=== PATIENT | male | born 1980 | race Caucasian/White ===

== ENCOUNTER 2025-04-28 10:24 | Outpatient (AMB) | payer OTHER, SELFPAY ==
--- OUTSIDE RECORDS SUMMARY | 2025-04-28 11:41 | XMS_ITS | Encounter Summary ---
Author Organization [facility] Address [address] [place] [address] Phone Care Team Providers Care Surgical Physician Assistant Name Role Phone Ciaran Johnston MD Unavailable [phone] Rain King MD Unavailable [phone] Karolina Carlton MD Unavailable [phone] Silver Charles SDE Unavailable Casey Amezquita CABLE LACER Unavailable [phone] Carmen Kumar SDE Unavailable [phone] Jeffrey Celestin MD Unavailable Mikal Lea MD Unavailable [phone] Isabela Izquierdo DO Primary Care Provider Deborah Aquino MD Primary Care Provider Cam Butler MD Primary Care Provider Encounter Details Date Type Department Care Team (Late st Contact Info) Description 04/15/2019 Ancillary Orders [facility] & [facility] Medicine [address] [place] [phone] Kaitlynn Haro MD [address] [place] [address] Orthopedics & Sports Medicine, [facility] [place], [place] [id number] Social History Tobacco Use Types Packs/Day Years Used Date Smoking Tobacco: Never Smokeless Tobacco: Never Alcohol Use Standard Drinks/Week Comments Yes 0 (1 standard drink = 0.6 oz pur e alcohol) Sex and Gender Information Value Date Recorded Sex Assigned at Not on file Legal Sex Male 8:33 PM EDT Gender Identity Not on file Sexual Orientation Not on file documented as of this encounter Plan of Treatment Upcoming Encounters Date Type Department Care Team (Late st Contact Info) Description 08/05/2025 4:15 PM EST Office Visit [facility] Family Medicine [address] [place] [id number] Cam Butler MD [address] [place] [address], [address] [place] [address] [email or web address] documented as of this encounter Visit Diagnoses Not on filedocumented in this encounter Additional Health Concerns Infection Onset Date Last Indicated Resolved Time COVID-19 05/20/2021 05/20/2021 06/10/2021 1:22 AM EDT documented as of this encounter Care Teams Surgical Physician Assistant Relationship Specialty Start Date End Date Isabela Izquierdo DO [address] [place] [id number] [email or web address] PCP - General 09/13/18 01/13/21 Deborah Aquino MD [address] [place] [address] PCP - General Family Medicine 01/14/21 01/17/21 Cam Butler MD [address] [place] [address], [address] [place] [address] PCP - General Internal Medicine 01/18/21 Ciaran Johnston MD [address] [place] [address], [address] [place] [address] Historical LMR Provider 06/30/17 09/17/21 Rain King MD [address] [facility], [address] [place] [address] Historical LMR Provider 06/30/17 2 Karolina Carlton MD [address] [place] [id number] [email or web address] Historical LMR Provider 06/30/17 09/17/21 Silver Charles, GERARD [address] [place] [address] [facility] [address] [email or web address] Historical LMR Provider 06/30/17 09/17/21 Casey Amezquita, BRADLEY [address] [place] [address], [address] [place] [address] [email or web address] Historical LMR Provider 06/30/17 09/17/21 Carmen Kumar, GERARD [address] [place] [address] [place] [address] Historical LMR Provider 06/30/17 Jeffrey Celestin MD [address] [place] [address], [address] [place] [address] [email or web address] Historical LMR Provider 06/30/17 Mikal Lea MD [address] [facility] [address] 1 [place] [address] (work) [email or web address] Historical LMR Provider 06/30/17 documented as of this encounter Additional Source Comments The information contained in this document represents components of the legal health record. It is not the complete legal health record.[facility]
== END 2025-04-28 10:42 | disposition home or self-care (01) ==
LOC: HO.HMGAL 10:24
PROVIDERS: Visit Provider Registered Nurse Emergency
DX: J30.89 Other allergic rhinitis (principal)
CPT/HCPCS: 95117; 95165

== ENCOUNTER 2025-05-06 10:35 | Outpatient (AMB) | payer OTHER, SELFPAY ==
--- OUTSIDE RECORDS SUMMARY | 2025-05-06 11:27 | XMS_ITS | Clinical Summary ---
Author Organization [facility] Address [address] [place] [address] Phone Care Team Providers Care Bottom Hoop Driver Name Role Phone Jeffrey Celestin MD Unavailable [phone] Mikal Lea MD Unavailable Cam Butler MD Primary Care Provider [phone] Allergies Active Allergy Reactions Criticality Noted Date Comments House Dust Mite Cough,Itching,Shortn ess Of Breath,Sneezing High 05/21/2000 Lisinopril Cough 11/11/2023 Pollen Extracts 02/02/2022 Medications TURMERIC ROOT EXTRACT ORAL Take by mouth. Ac tive ZINC ACETATE ORAL Take by mouth. Active multivitamins capsule Take 1 capsule by mouth daily. Active loratadine 10 mg Cap Take by mouth daily as needed. Active cetirizine (ZYRTEC) 10 MG tablet Take 10 mg by mouth daily as needed for allergies. Active fexofenadine (DONNA) 60 MG tablet Take 60 mg by mouth daily. Active albuterol (PROAIR HFA) 90 mcg/actuation inhalerIndication s:Exercise-induce d bronchospasm Inhale 2 puffs into the lungs every 4 (four) hours as needed for wheezing. 1 Inhaler 3 0 Active blood pressure test kit-medium KitIndications:Es sential hypertension Check BP every 2-3 times a week 1 kit 3 Active ketoconazole 2 % creamIndications: Seborrheic dermatitis Apply topically daily. 30 g 2 4 Active valsartan-hydroCH LOROthiazide (DIOVAN-HCT) 160-12.5 mg per tabletIndications :Essential hypertension Take 1 tablet by mouth daily. 90 tablet 3 5 Active methylphenidate (CONCERTA) 54 MG ER tabletIndications :Adult attention deficit disorder Take 1 tablet (54 mg total) by mouth every morning. 30 tablet 5 Active Active Problems Problem Noted Date Diagnosed Date Strain of tendon of right shoulder 11/19/2024 Assessment & Plan (11/19/2024 10:25 AM EDT): Patient has persistent symptoms after snowboarding accident, but they are gradually improving. I showed him some exercises he can do at home. If these do not satisfactorily resolve his symptoms, he will let me know and I can refer to physical therapy. Allergic contact dermatitis due to plants, excep t food 01/09/2024 Assessment & Plan (01/09/2024 9:42 AM EDT): Likely has poison luis, triamcinolone cream is helpful. He can continue using this. Rash should gradually improve and resolve over the course the next week or 2. Seborrheic dermatitis 10/10/2023 Assessment & Plan (10/10/2023 9:19 AM EST): Rash on face is likely seborrheic although could be rosacea. Try ketoconazole cream. If not helpful he can try alternating it every other day with hydrocortisone cream. If neither is helpful, could be rosacea and could try metronidazole cream. Seborrheic dermatitis of scalp 07/06/2023 Assessment & Plan (07/06/2023 1:42 PM EDT): Failed head and shoulders, try selenium based or tar-based shampoo 2 or 3 times per week. 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 Asked him to check his blood pressure resting at home and send me about 10 blood pressure readings in a month. Goal is to maintain an average blood pressure less than 130/80. Encouraged also to work on losing some weight and continue low-sodium diet. Continue current medication. Assessment & Plan (07/30/2024 2:23 PM EST): Blood pressure seems like this is running too high, but he like to get more data. I asked him to check his blood pressure at home 2 or 3 times per week and send about 10 blood pressure readings before the end of the year. Blood pressure goal is less than 130/80. If he is not in the range, I will add hydrochlorothiazide to valsartan. Assessment & Plan (01/09/2024 9:42 AM EDT): Blood pressure is better but still above target, increase dose of valsartan. Continue working on diet and exercise. Continue monitoring blood pressure, goal is to maintain an average blood pressure less than 130/80. Assessment & Plan (10/10/2023 9:18 AM EST): Blood pressure is running too high and developed dry cough with lisinopril. Will check labs today and if no significant abnormality, start him on valsartan 80 mg. Asked him to check his blood pressure at home 2 or 3 times per week and send me a list of about 8-10 blood pressure readings before you refill his medication a month so we can titrate medication. Goal is to maintain an average blood pressure less than 130/80. Assessment & Plan (07/06/2023 1:42 PM EDT): Pressure is running too high. Start lisinopril. Benefits risks and side effects were reviewed. Continue monitoring blood pressure at home and send blood pressure readings prior to refill and will increase dose if blood pressure not well controlled. Goal is average blood pressure less than 130/80. Assessment & Plan (04/03/2023 6:30 PM EDT): Diastolic blood pressure still mildly elevated although his systolic is better. I like him to monitor his blood pressure at home 2 or 3 times per week and send about 10 blood pressure readings in about a month. Goal is to maintain an average blood pressure less than 140/90. Continue low-sodium diet. Encouraged to cut down on portions and work on losing some weight as well. Assessment & Plan (12/11/2022 5:30 PM EDT): He has done well with diet and exercise in the past and encouraged to continue working on losing weight, following a low-sodium diet, and increasing his aerobic exercise. Monitor blood pressure at home a few times per week and bring record of blood pressure readings to his appointment with me in about 3 months. Chronic right-sided low back pain without sciati ca 05/24/2022 Assessment & Plan (05/24/2022 8:28 PM EDT): Back pain is likely due to a muscular injury. Physical therapy is likely to be helpful, I do not think he needs any invasive treatments we can cancel his with Dr. Campos. Adult attention deficit disorder 06/21/2021 Assessment & Plan (11/19/2024 10:25 AM EDT): Well-controlled, continue current medication Assessment & Plan (07/30/2024 2:23 PM EST): Medications helpful, but not adequately controlling symptoms. Will try higher dose. Side effects were again reviewed. Assessment & Plan (10/10/2023 9:19 AM EST): Doing well with current medication, continue the same Assessment & Plan (04/03/2023 6:30 PM EDT): Inattentiveness has worsened since decreasing his dose of methylphenidate. He would like to try increasing dose again. If he has trouble tolerating this, I suggest switching to Adderall. Assessment & Plan (12/11/2022 5:31 PM EDT): Doing well with current medication, continue the same. Note his job requires more concentration, it is reasonable for him to continue taking medication daily. Assessment & Plan (05/24/2022 8:27 PM EDT): He is having side effects likely due to the dose of his medication. I will try him on a lower dose and see if this is effective. If not we can try him on a different medication. Assessment & Plan (06/21/2021 5:41 PM EDT): He is doing well with his current medication. He can continue using as he has been. Obstructive sleep apnea of adult 06/21/2021 Overview (10/10/2023): Intolerant of CPAP in the past. Mild positional sleep apnea on polysomnogram in 2022. CPAP not recommended by sleep medicine. Assessment & Plan (10/10/2023 9:18 AM EST): Doing better, managed with sleep position. Assessment & Plan (07/06/2023 1:41 PM EDT): Discussed the risks of untreated sleep apnea encouraged to consider having another home sleep study. He will consider and get back to sleep medicine if he wants to proceed. Assessment & Plan (04/03/2023 6:31 PM EDT): Follow-up as planned with pulmonary for home sleep study and possible trial of a new CPAP. Encouraged to continue working on weight loss. Assessment & Plan (12/11/2022 5:30 PM EDT): May be a good candidate for inspire. Importance of controlling sleep apnea emphasized especially considering the fact his blood pressure is elevated. Assessment & Plan (05/24/2022 8:27 PM EDT): He is having difficulty tolerating CPAP. He would like to try an oral appliance. Asked him to see if his dentist can fit him for such a device. If not he should follow-up with sleep medicine. Assessment & Plan (06/21/2021 5:40 PM EDT): Doing better with CPAP, encouraged to try to use it for more hours nightly. Exercise-induced asthma 06/17/2020 Overweight 09/07/2017 Urolithiasis 09/07/2017 Resolved Problems Problem Noted Date Diagnosed Date Resolved Date Acute upper respiratory infection 07/30/2024 11/19/2024 Assessment & Plan (07/30/2024 2:23 PM EST): Symptoms are consistent with a viral URI which seems like is getting better. If symptoms persist or worsen, he may have a sinus infection. He can contact us next week if things are not much better and will start him on an antibiotic. Irritant contact dermatitis due to other agents 06/21/2021 10/10/2023 Assessment & Plan (06/21/2021 5:42 PM EDT): Skin appears sensitive and from his description it sounds like ball and possibly friction bother his skin. I suggest he try using a polypropylene liner in his socks when skiing, but if this rash still develops he can use some triamcinolone cream which should be helpful. 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 1 Encounters Date Type Department Care Team Description 02/10/2025 8:00 AM EDT Office Visit [facility] [address] [place] [address] Zac Galeas PA-C Kreps, David J, PT Chronic right shoulder pain (Primary Dx) from Last 3 Months Immunizations Immunization Administration Dates Next Due INFLUENZA, SPLIT VIRUS, TRIVALENT W/ PRESERVATIV E IM 06/12/2012 Influenza Quadrivalent Preservative Free IM 06/10,06/30/2019 Influenza Quadrivalent w/ Preservative IM 2013 Influenza Recombinant Tomeka valent Preservative Free IM 07/02/2018 Influenza trivalent preservative free intraderma l 07/02/2013 Influenza, Unspecified Formulation 06/30/2019 Pneumococcal polysaccharide PPSV23 11/03/2020 Tdap 06/02/2011 Family History Medical History Relation Comments No Known Problems Brother No Known Problems Daughter 1 No Known Problems Daughter 2 No Known Problems Daughter 3 No Known Problems Daughter 4 No Known Problems Father No Known Problems Mother No Known Problems Sister Relation Status Comments Brother Alive Daughter 1 Alive Daughter 2 Alive Daughter 3 Alive Daughter 4 Alive Father Alive Mother Alive Sister Alive Social History Tobacco Use Types Packs/Day Years Used Date Smoking Tobacco: Never Smokeless Tobacco: Never Tobacco Cessation:Counseling Given: Not Answered Alcohol Use Standard Drinks/Week Comments Yes 0 (1 standard drink = 0.6 oz pur e alcohol) 7-8 weekends Child or Family Care Answer Date Record ed Do you have problems with on e of the following making it difficult for you to work, study, or receive health care? No 05/21/2022 Education Answer Date Recorded Are you interested in more education? Not on becky e 05/21/2024 Are you concerned about learning? Not on file 05/21/2024 No 05/21/2024 No 05/21/2024 Food Answer Date Recorded Within the past 6 months we worried whether our food would run out before we got money to buy more. Never True 05/21/2022 Within the past 6 months the food we bought just didn't last and we didn't have enough money to get more. Never True Residential Stability Answer Date Recor ded What is your housing situation today? I have jose l sing 05/21/2022 How many times have you move d in the past 12 months? Zero (I did not move) 05/21/2022 Paying for Meds Answer Date Recorded Do you have trouble paying for medicines? No 05/21/2022 Paying Utility Bills Answer Date Record ed Do you have trouble paying your heating or elect ricity bill? No 05/21/2022 Transportation Answer Date Recorded Has the lack of transportati on kept you from medical appointments or from getting medications? No 05/21/2022 Unemployment Answer Date Recorded Are you currently unemployed or working on a part-time or temporary basis, and looking for work? No 05/21/2022 Digital Access Answer Date Recorded No 02/01/2023 No 02/01/2023 Reliable internet access at home? Not on file 02/01/2023 Device with a working camera? Not on file Sex and Gender Information Value Date Recorded Sex Assigned at Not on file Legal Sex Male 8:33 PM EDT Gender Identity Not on file Sexual Orientation Not on file Occupation Industry Job Start Date Job End Date [employer] Not on file Not on file Not on file Last Filed Vital Signs Vital Sign Reading Time Taken Comments Blood Pressure 132/78 11/19/2024 8:16 AM EDT Pulse 77 11/19/2024 8:16 AM EDT Temperature 36.6 C (97.8 F) 11/19/2024 8:16 AM EDT Respiratory Rate 16 10/05/2024 9:09 AM EST Oxygen Saturation 98% 11/19/2024 8:16 AM EDT Inhaled Oxygen Concentration - - Weight 97.5 kg (215 lb) 12/09/2024 3:24 PM EDT Height 175.3 cm (5' 9 ) 12/09/2024 3:24 PM EDT Body Mass Index 31.75 12/09/2024 3:24 PM EDT Plan of Treatment Upcoming Encounters Date Type Department Care Team (Late st Contact Info) Description 08/05/2025 4:15 PM EST Office Visit [facility] Medicine [address] [place] [address] [place] [address] Cam Butler MD [address] [facility], [address] [place] [address] Health Maintenance Due Date Last Done Comments Adult Td,Tdap Booster 06/02/2021 06/02/2011 PNEUMOCOCCAL VACCINES (0-49 years) (2 of 2 - PCV) 11/03/2021 11/03/2020 DEPRESSION SCREENING 05/21/2023 05/21/2022, 11/03/2020 COVID-19 VACCINE (2 - 2023-2 5 season) 2024 09/26/2021 BLOOD PRESSURE 05/22/2025 11/19/2024 CREATININE LEVEL 09/23/2025 09/23/2024, 11/10/2023, 06/21/2021 POTASSIUM LEVEL 09/23/2025 09/23/2024, 11/10/2023, 06/21/2021 LIPID PANEL 06/21/2026 06/21/2021, 05/11/2011 SCREENING FOR DIABETES 09/23/2027 , 09/07/2017 HEPATITIS C SCREENING Completed 07/02/2018 , 09/07/2017 HIV ONE-TIME SCREENING (18-6 5 YEARS) Completed 07/02/2018 SMOKING STATUS SCREENING (On ce After 26 Yrs) Completed 12/09/2024 HEPATITIS A VACCINES Aged Out No long er eligible based on patient's age to complete this topic HIB VACCINES Aged Out No longer eligi ble based on patient's age to complete this topic MENINGOCOCCAL VACCINES (ACWY) Aged Out No longer eligible based on patient's age to complete this topic MENINGOCOCCAL VACCINES (B) Aged Out N o longer eligible based on patient's age to complete this topic Medical Devices Not on file Procedures Procedure Name Priority Date/Time Associated Diagnosis Comments BASIC METABOLIC PANEL Routine 09/23/2024 10:18 AM EST Essential hypertension LIPID PANEL Routine 06/21/2021 12:04 PM EDT Annual physical exam HEPATITIS C ANTIBODY, QUALITATIVE Routine 07/02/2018 4:30 PM EDT Exposure to blood or body fluid GLUCOSE Routine 09/07/2017 4:24 PM EST Erectile dysfunction, unspecified erectile dysfunction type from Last 3 Months or Most Recently Relevant to Health Maintenance Results * (ABNORMAL) Basic metabolic panel (09/23/2024 10:18 AM EST) SODIUM 139 133 - 146 mmol/L [facility] CHLORIDE 101 96 - 108 mmol/L [facility] POTASSIUM 4.0 3.3 - 5.1 mmol/L [facility] CO2 28 21 - 35 mmol/L [facility] BUN 15 6 - 19 mg/dL [facility] CREATININE 0.80 0.5 - 1.5 mg/dL [facility] GLUCOSE 112(H) 70 - 99 mg/dL [facility] CALCIUM 10.3 8.4 - 10.3 mg/dL [facility] EGFR 113 >59 mL/min/1.7 3m2 [facility] Comment:Estimated glomerular filtration rate calculated using the CKD-EPI refit equation. ANION GAP 14 10 - 20 mmol/L [facility] Blood 09/23/2024 10:1 8 AM EST 09/23/2024 10:25 AM EST us Cam Butler MD LAB BLOOD ORDERABLES Final Result Performing Organization Address [facility] Co de Phone Number [address] [address] * Lipid panel (06/21/2021 12:04 PM EDT) HDL 51 mg/dL [facility] Comment: Interpretation <40 mg/dL: Low HDL cholesterol (major risk factor for CHD) Greater than or equal to 60 mg/dL: High HDL cholesterol ( negative risk factor for CHD) HDL - cholesterol is affected by a number of factors, e.g. smoking, excerise, hormones, sex and age. CHOLESTEROL 189 0 - 240 mg/dL [facility] TRIGLYCERIDES 44 30 - 160 mg/dL [facility] LDL 129 50 - 129 mg/dL [facility] Comment: LDL levels in terms of risk for coronary heart disease: <100 mg/dL: Optimal 100-129 mg/dL: Near or above optimal 130-159 mg/dL: Borderline high 160-189 mg/dL: High >190 mg/dL: Very High CARDIAC RISK RATIO 3.7 3.4 - 5.0 C [facility] Blood 06/21/2021 12:0 4 PM EDT 06/21/2021 12:09 PM EDT us Isabela Izquierdo DO LAB BLOOD ORDERABLES Final Result Performing Organization Address [facility]/ZIP Co de Phone Number [address] [address] * Hepatitis C antibody, qualitative (07/02/2018 4:30 PM EDT) HCV Negative Negative [facility] Comment: This is a screening test and should be confirmed with molecular testing Blood 07/02/2018 4:30 PM EDT 07/02/2018 4:37 PM EDT Mikal Lea MD LAB BLOOD ORDERABLES Final Result Performing Organization Address [facility]/ZIP Co de Phone Number [address] [address] * Glucose (09/07/2017 4:24 PM EST) GLUCOSE 82 70 - 99 mg/dL [facility] Blood 09/07/2017 4:24 PM EST 09/07/2017 4:32 PM EST Mikal Lea MD LAB BLOOD ORDERABLES Final Result Performing Organization Address [facility] Co de Phone Number [address] [address] from Last 3 Months or Most Recently Relevant to Health Maintenance Insurance [facility] Care Teams Bottom Hoop Driver Relationship Specialty Start Date End Date Cam Butler MD [address] [facility], [address] [place] [address] [email or web address] PCP - General Internal Medicine 01/18/21 Jeffrey Celestin MD [address] [place] [address], [address] [place] [address] [email or web address] Historical LMR Provider 06/30/17 Mikal Lea MD [address] [facility] [address] 1 [place] [address] [email or web address] Historical LMR Provider 06/30/17 Additional Source Comments The information contained in this document represents components of the legal health record. It is not the complete legal health record.[facility]
--- OUTSIDE RECORDS SUMMARY | 2025-05-06 11:27 | XMS_ITS | Encounter Summary ---
Author Organization [facility] Address [address] [place] [address] Phone Care Team Providers Care Survey Chief Name Role Phone Ciaran Johnston MD Unavailable +-[phone] Rain King MD Unavailable +82 Karolina Carlton MD Unavailable [phone] Silver Charles DRIVER/MERCHANDISER Unavailable Casey Amezquita URBAN FORESTER Unavailable [phone] Carmen Kumar DRIVER/MERCHANDISER Unavailable [phone] Jeffrey Celestin MD Unavailable [phone] Mikal Lea MD Unavailable [phone] Isabela Izquierdo DO Primary Care Provider Deborah Aquino MD Primary Care Provider Cam Butler MD Primary Care Provider Encounter Details Date Type Department Care Team (Late st Contact Info) Description 04/15/2019 Ancillary Orders [address] [place] [address] Kaitlynn Haro MD [address] [place] [address] Orthopedics & Sports Medicine, [facility]. [place], [place] [id number] Hand pain, left Social History Tobacco Use Types Packs/Day Years [...] Description 08/05/2025 4:15 PM EST Office Visit [facility] Medicine [address] [place] [address] Cam Butler MD [address] [facility], [address] [place] [address] [email or web address] documented as of this encounter Results * XR HAND 2 VIEWS (LEFT) (04/15/2019 9:29 AM EDT) Narrative SYSTEMGENERATED, DOCUMENTATION - 04/15/2019 9:30 AM EDT This image report has been auto-finalized and has not been read by a Radiologist. Interpretation has been included in the provider encounter note for this date of service. us Kaitlynn Haro MD IMG XR UPPER EXTREMITY Final Result documented in this encounter Visit Diagnoses Diagnosis Hand pain, left Pain in soft tissues of limb Hand pain, left Pain in soft tissues of limb documented in this encounter Additional Health Concerns Infection Onset Date Last Indicated Resolved Time COVID-19 05/20/2021 05/20/2021 06/10/2021 1:22 AM EDT documented as of this encounter Care Teams Survey Chief Relationship Specialty Start Date End Date Isabela Izquierdo DO [address] [place] [address] [email or web address] PCP - General 09/13/18 01/13/21 Deborah Aquino MD [address] [facility] [address] [place] [address] PCP - General Family Medicine 01/14/21 01/17/21 Cam Butler MD [address] [place] [address], [address] [place] [address] PCP - General Internal Medicine 01/18/21 Ciaran Johnston MD [address] [place] [address], [address] [place] [address] Historical LMR Provider 06/30/17 09/17/21 Rain King MD [address] [place] [address], [address] [place] [address] Historical LMR Provider 06/30/17 2 Karolina Carlton MD [address] [place] [address] [email or web address] Historical LMR Provider 06/30/17 09/17/21 Silver Charles NP [address] [place] [address] 2_[place] [address] [email or web address] Historical LMR Provider 06/30/17 09/17/21 Casey Amezquita, BRADLEY [address] [place] [address], [address] [place] [address] [email or web address] Historical LMR Provider 06/30/17 09/17/21 Carmen Kumar, DRIVER/MERCHANDISER [address] [place] [address] [place] [address] Historical LMR Provider 06/30/17 Jeffrey Celestin MD [address] [place] [address], [address] [place] [address] [email or web address] Historical LMR Provider 06/30/17 Mikal Lea MD [address] [place] [address] Floor 1 [place] [address] [email or web address] Historical LMR Provider 06/30/17 documented as of this encounter Additional Source Comments The information contained in this document represents components of the legal health record. It is not the complete legal health record.[facility]
--- OUTSIDE RECORDS SUMMARY | 2025-05-06 11:27 | XMS_ITS | Encounter Summary ---
Author Organization [facility] Address [address] [place] [address] Phone Care Team Providers Care Outbound Telemarketing Representative Name Role Phone Ciaran Johnston MD Unavailable +10 Rain King MD Unavailable +80 Karolina Carlton MD Unavailable [phone] Silver Charles JINRIKISHA DRIVER Unavailable Casey Amezquita INCIDENT COMMANDER Unavailable [phone] Carmen Kumar JINRIKISHA DRIVER Unavailable [phone] Jeffrey Celestin MD Unavailable [phone] Mikal Lea MD Unavailable [phone] Isabela Izquierdo DO Primary Care Provider + [phone] Deborah Aquino MD Primary Care Provider [phone] Cam Butler MD Primary Care Provider + [phone] Encounter Details Date Type Department Care Team (Late st Contact Info) Description 04/15/2019 Procedure Pass [facility], [address] [address] Social History Tobacco Use Types Packs/Day Years [...] Description 08/05/2025 4:15 PM EST Office Visit [facility] 22 [place] [address] Cam Butler MD [address] [place] [address], [address] [place] [address] documented as of this encounter Visit Diagnoses Not on filedocumented in this encounter Additional Health Concerns Infection Onset Date Last Indicated Resolved Time COVID-19 05/20/2021 05/20/2021 06/10/2021 1:22 AM EDT documented as of this encounter Care Teams Outbound Telemarketing Representative Relationship Specialty Start Date End Date Isabela Izquierdo DO [address] [place] [address] [email or web address] PCP - General 09/13/18 01/13/21 Deborah Aquino MD [address] [place] [address] PCP - General Family Medicine 01/14/21 01/17/21 Cam Butler MD [address] [place] [address] PCP - General Internal Medicine 01/18/21 Ciaran Johnston MD [address] [place] [address] Historical LMR Provider 06/30/17 09/17/21 aRin King MD [address] [facility], [address] [place] [address] [email or web address] Historical LMR Provider 06/30/17 2 Karolina Carlton MD [address] [place] [address] [email or web address] Historical LMR Provider 06/30/17 09/17/21 Silver Charles, GERARD [address] [place] [address] 2_[place] [address] [email or web address] Historical LMR Provider 06/30/17 09/17/21 Casey Amezquita CNP [address] [place] [address], [address] [place] [address] [email or web address] Historical LMR Provider 06/30/17 09/17/21 Carmen Kumar, GERARD [address] [place] [address] [place] [address] Historical LMR Provider 06/30/17 Jeffrey Celestin MD [address] [place] [address], [address] [place] [address] [email or web address] Historical LMR Provider 06/30/17 Mikal Lea MD [address] [facility] [address] 1 [place] [address] [email or web address] Historical LMR Provider 06/30/17 documented as of this encounter Additional Source Comments The information contained in this document represents components of the legal health record. It is not the complete legal health record.[facility]
--- OUTSIDE RECORDS SUMMARY | 2025-05-06 11:27 | XMS_ITS | Encounter Summary ---
Author Organization [facility] Address [address] [place] [address] Phone Care Team Providers Care Illuminator Name Role Phone Ciaran Johnston MD Unavailable +58 Rain King MD Unavailable +30 Karolina Carlton MD Unavailable [phone] Silver Charles GRADUATE RESEARCH ASSISTANT Unavailable Casey Amezquita [address] [employer] Unavailable [phone] Carmen Kumar GRADUATE RESEARCH ASSISTANT Unavailable [phone] Jeffrey Celestin MD Unavailable [phone] Mikal Lea MD Unavailable [phone] Isabela Izquierdo DO Primary Care Provider Deobrah Aquino MD Primary Care Provider Cam Butler MD Primary Care Provider Encounter Details Date Type Department Care Team (Late st Contact Info) Description 04/15/2019 Ancillary Orders [facility] Orthopedics & Sports Medicine [address] [place] [address] Kaitlynn Haro MD [address] [place] [address] Orthopedics & Sports Medicine, [facility]. [place], [place] [phone] Social History Tobacco Use Types Packs/Day Years [...] Description 08/05/2025 4:15 PM EST Office Visit [facility] Family Medicine [address] [place] [address] Cam Butler MD [address] [place] [address], [address] [place] [address] [email or web address] documented as of this encounter Visit Diagnoses Not on filedocumented in this encounter Additional Health Concerns Infection Onset Date Last Indicated Resolved Time COVID-19 05/20/2021 05/20/2021 06/10/2021 1:22 AM EDT documented as of this encounter Care Teams Illuminator Relationship Specialty Start Date End Date Isabela Izquierdo DO [address] [place] [address] [email or web address] PCP - General 09/13/18 01/13/21 Deborah Aquino MD [address] [place] [address] PCP - General Family Medicine 01/14/21 01/17/21 Cam Butler MD [address] [place] [address], [address] [place] [address] PCP - General Internal Medicine 01/18/21 Ciaran Johnston MD [address] [place] [address], [address] [place] [address] Historical LMR Provider 06/30/17 09/17/21 Rain King MD [address] [facility], [address] [place] [address] Historical LMR Provider 06/30/17 2 Karolina Carlton MD [address] [place] [address] [email or web address] Historical LMR Provider 06/30/17 09/17/21 Silver Charles, GERARD [address] [place] [address] 2_[place] [address] [email or web address] Provider 06/30/17 09/17/21 Casey Amezquita, BRADLEY [address] [place] [address], [address] [place] [address] [email or web address] Historical LMR Provider 06/30/17 09/17/21 Carmen Kumar, GERARD [address] [place] [address] [place] [address] Historical LMR Provider 06/30/17 Jeffrey Celestin MD [address] [place] [address], [address] [place] [address] [email or web address] Historical LMR Provider 06/30/17 Mikal Lea MD [address] [facility] Floor 1 [place] [address] (work) [email or web address] Historical LMR Provider 06/30/17 documented as of this encounter Additional Source Comments The information contained in this document represents components of the legal health record. It is not the complete legal health record.[facility]
== END 2025-05-06 10:47 | disposition home or self-care (01) ==
LOC: HO.HMGAL 10:35
PROVIDERS: Visit Provider Registered Nurse Emergency
DX: J30.89 Other allergic rhinitis (principal)
CPT/HCPCS: 95117; 95165

== ENCOUNTER 2025-06-15 11:55 | Outpatient (AMB) | payer OTHER, SELFPAY ==
--- OUTSIDE RECORDS SUMMARY | 2025-06-15 14:28 | XMS_ITS | Encounter Summary ---
Author Organization [facility] Address [address] [place] [address] Phone Care Team Providers Care Narrow Gauge Brakeman Name Role Phone Ciaran Johnston MD Unavailable +20 Rain King MD Unavailable +42 Karolina Carlton MD Unavailable [phone] Silver Charles BRIDGE EXPERT Unavailable Casey Amezquita HOMICIDE INVESTIGATOR Unavailable [phone] Carmen Kumar BRIDGE EXPERT Unavailable [phone] Jeffrey Celestin MD Unavailable [phone] Mikal Lea MD Unavailable [phone] Isabela Izquierdo DO Primary Care Provider + [phone] Deborah Aquino MD Primary Care Provider Cam Butler MD Primary Care Provider + [phone] Encounter Details Date Type Department Care Team (Late st Contact Info) Description 04/15/2019 Procedure Pass [facility], [address] [address] Social History Tobacco Use Types Packs/Day Years [...] Description 08/05/2025 4:15 PM EST Office Visit [facility] 22 [place] [address] Cam Butler MD [address] [place] [address], [address] [place] [address] documented as of this encounter Visit Diagnoses Not on filedocumented in this encounter Additional Health Concerns Infection Onset Date Last Indicated Resolved Time COVID-19 05/20/2021 05/20/2021 06/10/2021 1:22 AM EDT documented as of this encounter Care Teams Narrow Gauge Brakeman Relationship Specialty Start Date End Date Isabela Izquierdo DO [address] [place] [address] [email or web address] PCP - General 09/13/18 01/13/21 Deborah Aquino MD [address] [place] [address] PCP - General Family Medicine 01/14/21 01/17/21 Cam Butler MD [address] [place] [address] PCP - General Internal Medicine 01/18/21 Ciaran Johnston MD [address] [place] [address] Historical LMR Provider 06/30/17 09/17/21 Rain King MD [address] [facility], [address] [place] [address] [email or web address] Historical LMR Provider 06/30/17 2 Karolina Carlton MD [address] [place] [address] [email or web address] Historical LMR Provider 06/30/17 09/17/21 Silver Charles, GERARD [address] [place] [address] 2_[place] [address] [email or web address] Historical LMR Provider 06/30/17 09/17/21 Casey Amezquita CNP [address] [place] [address], [address] [place] [address] [email or web address] Historical LMR Provider 06/30/17 09/17/21 Carmen Kumar, GERARD [address] [place] [address] [place] [address] Historical LMR Provider 06/30/17 Jeffrey Celestin MD [address] [place] [address], [address] [place] [address] [email or web address] Historical LMR Provider 06/30/17 Mikal Lea MD [address] [facility] [address] 1 [place] [address] [email or web address] Historical LMR Provider 06/30/17 documented as of this encounter Additional Source Comments The information contained in this document represents components of the legal health record. It is not the complete legal health record.[facility]
--- OUTSIDE RECORDS SUMMARY | 2025-06-15 14:28 | XMS_ITS | Encounter Summary ---
Author Organization [facility] Address [address] [place] [address] Phone Care Team Providers Care Building Energy Consultant Name Role Phone Ciaran Johnston MD Unavailable +-[phone] Rain King MD Unavailable +73 Karolina Carlton MD Unavailable [phone] Silver Charles CABLEWAY OPERATOR Unavailable Casey Amezquita ENGINE GENERATOR ASSEMBLER Unavailable [phone] Carmen Kumar CABLEWAY OPERATOR Unavailable [phone] Jeffrey Celestin MD Unavailable [phone] Mikal Lea MD Unavailable [phone] Isabela Izquierdo DO Primary Care Provider Deborah Aquino MD Primary Care Provider Cam Butler MD Primary Care Provider Encounter Details Date Type Department Care Team (Late st Contact Info) Description 04/15/2019 Ancillary Orders [address] [place] [address] Kaitlynn Haro MD [address] [place] [address] Orthopedics & Sports Medicine, [facility]. [place], [place] [id number] Hand pain, left Social History Tobacco Use [...] Description 08/05/2025 4:15 PM EST Office Visit [facility] Medicine [address] [place] [address] Cam Butler MD [address] [facility], [address] [place] [address] [email or web address] documented as of this encounter Results * [...] documented as of this encounter Care Teams Building Energy Consultant Relationship Specialty Start Date End Date Isabela Izquierdo DO [address] [place] [address] [email or web address] PCP - General 09/13/18 01/13/21 Deborah Aquino MD [address] [facility] [address] [place] [address] PCP - General Family Medicine 01/14/21 01/17/21 Cam Butler MD [address] [place] [address], [address] [place] [address] PCP - General Internal Medicine 01/18/21 Ciaran Johnston MD [address] [place] [address], [address] [place] [address] Historical LMR Provider 06/30/17 09/17/21 Rain King MD [address] [place] [address], [address] [place] [address] Historical LMR Provider 06/30/17 2 Karolina Carlton MD [address] [place] [address] [email or web address] Historical LMR Provider 06/30/17 09/17/21 Silver Charles NP [address] [place] [address] 2_[place] [address] [email or web address] Historical LMR Provider 06/30/17 09/17/21 Casey Amezquita, BRADLEY [address] [place] [address], [address] [place] [address] [email or web address] Historical LMR Provider 06/30/17 09/17/21 Carmen Kumar, CABLEWAY OPERATOR [address] [place] [address] [place] [address] Historical LMR Provider 06/30/17 Jeffrey Celestin MD [address] [place] [address], [address] [place] [address] [email or web address] Historical LMR Provider 06/30/17 Mikal Lea MD [address] [place] [address] Floor 1 [place] [address] [email or web address] Historical LMR Provider 06/30/17 documented as of this encounter Additional Source Comments The information contained in this document represents components of the legal health record. It is not the complete legal health record.[facility]
--- OUTSIDE RECORDS SUMMARY | 2025-06-15 14:28 | XMS_ITS | Encounter Summary ---
Author Organization [facility] Address [address] [facility] [address] [place] [address] Phone Care Team Providers Care Disk Recoater Name Role Phone Ciaran Johnston MD Unavailable +58 Rain King MD Unavailable +30 Karolina Carlton MD Unavailable [phone] Silver Charles ELECTRICIAN CONTROL EQUIPMENT Unavailable Casey Amezquita RECHARGER Unavailable [phone] Carmen Kumar ELECTRICIAN CONTROL EQUIPMENT Unavailable [phone] Jeffrey Celestin MD Unavailable Mikal Lea MD Unavailable [phone] Isabela Izquierdo DO Primary Care Provider Deborah Aquino MD Primary Care Provider Cam Butler MD Primary Care Provider Encounter Details Date Type Department Care Team (Late st Contact Info) Description 04/15/2019 Ancillary Orders [facility] Orthopedics & Sports Medicine [address] [place] [address] Kaitlynn Haro MD [address] [place] [address] Orthopedics & Sports Medicine, [facility]. [place], [place] [id number] Social History Tobacco Use Types Packs/Day Years [...] Description 08/05/2025 4:15 PM EST Office Visit [facility] Family Medicine [address] [place] [address] Cam Butler MD [address] [place] [address], [address] [place] [address] [email or web address] documented as of this encounter Visit Diagnoses Not on filedocumented in this encounter Additional Health Concerns Infection Onset Date Last Indicated Resolved Time COVID-19 05/20/2021 05/20/2021 06/10/2021 1:22 AM EDT documented as of this encounter Care Teams Disk Recoater Relationship Specialty Start Date End Date Isabela Izquierdo DO [address] [place] [address] [email or web address] PCP - General 09/13/18 01/13/21 Deborah Aquino MD [address] [place] [address] PCP - General Family Medicine 01/14/21 01/17/21 Cam Butler MD [address] [place] [address], [address] [place] [address] PCP - General Internal Medicine 01/18/21 Ciaran Johnston MD [address] [place] [address], [address] [place] [address] Historical LMR Provider 06/30/17 09/17/21 Rain King MD [address] [facility], [address] [place] [address] Historical LMR Provider 06/30/17 2 Karolina Carlton MD [address] [place] [address] [email or web address] Historical LMR Provider 06/30/17 09/17/21 Silver Charles, GERARD [address] [place] [address] 2_[place] [address] [email or web address] Historical LMR Provider 06/30/17 09/17/21 Casey Amezquita, BRADLEY [address] [place] [address], [address] [place] [address] [email or web address] Historical LMR Provider 06/30/17 09/17/21 Carmen Kumar, GERARD [address] [place] [address] [place] [address] Historical LMR Provider 06/30/17 Jeffrey Celestin MD [address] [place] [address], [address] [place] [address] [email or web address] Historical LMR Provider 06/30/17 Mikal Lea MD [address] [facility] [address] 1 [place] [address] (work) [email or web address] Historical LMR Provider 06/30/17 documented as of this encounter Additional Source Comments The information contained in this document represents components of the legal health record. It is not the complete legal health record.[facility]
--- OUTSIDE RECORDS SUMMARY | 2025-06-15 14:28 | XMS_ITS | Clinical Summary ---
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 I have jose l alvares 05/21/2022 How many times have you move [...] Description 08/05/2025 4:15 PM EST Office Visit [facility] Medicine [address] [place] [address] [place] [address] Cam Butler MD [address] [facility], [address] [place] [address] Health Maintenance Due Date Last Done Comments Adult Td,Tdap Booster 06/02/2021 06/02/2011 PNEUMOCOCCAL VACCINES (0-49 years) (2 of 2 - PCV) 11/03/2021 11/03/2020 DEPRESSION SCREENING 05/21/2023 05/21/2022, 11/03/19 21 INFLUENZA VACCINE (#1) 2025 , 06/30/2019, 06/30/2019, Additional history exists COVID-19 VACCINE (2 - 2024- season) 2025 09/26/2021 BLOOD PRESSURE 05/22/2025 11/19/2024 CREATININE LEVEL 09/23/2025 09/23/2024, 10/2023, 06/21/2021 POTASSIUM LEVEL 09/23/2025 09/23/2024, 03/0 10/2023, 06/21/2021 LIPID PANEL 06/21/2026 06/21/2021, 05/11/2011 SCREENING FOR DIABETES 09/23/2027 09/23/2024, 2016 HEPATITIS C SCREENING Completed 07/02/2018, 017 HIV ONE-TIME SCREENING (18-65 YEARS) Completed 07/02/2018 SMOKING STATUS SCREENING (Once After 26 Yrs) Completed 12/09/2024 HEPATITIS A [...] EST) SODIUM 139 133 - 146 mmol/L [facility] CHLORIDE 101 96 - 108 mmol/L [facility] POTASSIUM 4.0 3.3 - 5.1 mmol/L [facility] CO2 28 21 - 35 mmol/L [facility] BUN 15 6 - 19 mg/dL [facility] CREATININE 0.80 0.5 - 1.5 mg/dL [facility] GLUCOSE 112(H) 70 - 99 mg/dL [facility] CALCIUM 10.3 8.4 - 10.3 mg/dL [facility] EGFR 113 >59 mL/min/1.7 3m2 [facility] Comment:Estimated glomerular filtration rate calculated using the CKD-EPI refit equation. ANION GAP 14 10 - 20 mmol/L [facility] Blood 09/23/2024 10:1 8 AM EST 09/23/2024 10:25 AM EST us Cam Butler MD LAB BLOOD ORDERABLES Final Result Performing Organization Address City/[facility] [address]/ZIP Co de Phone Number [address] [address] * Lipid panel (06/21/2021 12:04 PM EDT) HDL 51 mg/dL [facility] Comment: Interpretation <40 mg/dL: Low HDL cholesterol (major risk factor for CHD) Greater than or equal to 60 mg/dL: High HDL cholesterol ( negative risk factor for CHD) HDL - cholesterol is affected by a number of factors, e.g. smoking, excerise, hormones, sex and age. CHOLESTEROL 189 0 - 240 mg/dL [facility] TRIGLYCERIDES 44 30 - 160 mg/dL [facility] LDL 129 50 - 129 mg/dL [facility] Comment: LDL levels in terms of risk for coronary heart disease: <100 mg/dL: Optimal 100-129 mg/dL: Near or above optimal 130-159 mg/dL: Borderline high 160-189 mg/dL: High >190 mg/dL: Very High CARDIAC RISK RATIO 3.7 3.4 - 5.0 C [facility] Blood 06/21/2021 12:0 4 PM EDT 06/21/2021 12:09 PM EDT us Isabela Izquierdo DO LAB BLOOD ORDERABLES Final Result Performing Organization Address City/[facility] [address]/ZIP Co de Phone Number [address] [address] * Hepatitis C antibody, qualitative (07/02/2018 4:30 PM EDT) HCV Negative Negative [facility] Comment: This is a screening test and should be confirmed with molecular testing Blood 07/02/2018 4:30 PM EDT 07/02/2018 4:37 PM EDT Mikal Lea MD LAB BLOOD ORDERABLES Final Result Performing Organization Address [facility] [address]/ZIP Co de Phone Number [address] [address] * Glucose (09/07/2017 4:24 PM EST) GLUCOSE 82 70 - 99 mg/dL [facility] Blood 09/07/2017 4:24 PM EST 09/07/2017 4:32 PM EST Mikal Lea MD LAB BLOOD ORDERABLES Final Result Performing Organization Address [facility] [address]/[facility] Co de Phone Number [address] [address] from Last 3 Months or Most Recently Relevant to Health Maintenance Insurance [facility] [employer] [facility] [facility] [place] [facility] Care Teams Clay Grinder Relationship Specialty Start Date End Date Cam Butler MD [address] [facility], [address] [place] [address] PCP - General Internal Medicine 01/18/21 Jeffrey Celestin MD [address] [facility] [place] [address] [email or web address] Historical LMR Provider 06/30/17 Mikal Lea MD [address] [facility] Floor 1 [place] [address] [email or web address] Historical LMR Provider 06/30/17 Additional Source Comments The information contained in this document represents components of the legal health record. It is not the complete legal health record.[facility]
== END 2025-06-15 12:03 | disposition home or self-care (01) ==
LOC: HO.HMGAL 11:55
PROVIDERS: PCP Internal Medicine; Visit Provider Registered Nurse Emergency
DX: J30.89 Other allergic rhinitis (principal)
CPT/HCPCS: 95117; 95165

== ENCOUNTER 2025-06-24 11:02 | Outpatient (AMB) | payer OTHER, SELFPAY ==
--- OUTSIDE RECORDS SUMMARY | 2025-06-24 13:35 | XMS_ITS | Encounter Summary ---
Author Organization [facility] Address [address] [facility] [address] [place] [address] Phone Care Team Providers Care Carton Folder Name Role Phone Ciaran Johnston MD Unavailable [phone] Rain King MD Unavailable [phone] Karolina Carlton MD Unavailable [phone] Silver Charles SENIOR NAVAL PARACHUTIST Unavailable Casey Amezquita FILTERER Unavailable [phone] Carmen Kumar SENIOR NAVAL PARACHUTIST Unavailable [phone] Jeffrey Celestin MD Unavailable [phone] Mikal Lea MD Unavailable [phone] Isabela Izquierdo DO Primary Care Provider + [phone] Deborah Aquino MD Primary Care Provider Cam Butler MD Primary Care Provider + [phone] Encounter Details Date Type Department Care Team (Late st Contact Info) Description 04/15/2019 Procedure Pass [facility], [address] [address] Social History Tobacco Use Types Packs/Day Years [...] Office Visit [facility] [address] [place] [address] Cam Butler MD [address] [place] [address], [address] [place] [address] documented as of this encounter Visit Diagnoses Not on filedocumented in this encounter Additional Health Concerns Infection Onset Date Last Indicated Resolved Time COVID-19 05/20/2021 05/20/2021 06/10/2021 1:22 AM EDT documented as of this encounter Care Teams Carton Folder Relationship Specialty Start Date End Date Isabela Izquierdo DO [address] [place] [address] [email or web address] PCP - General 09/13/18 01/13/21 Deborah Aquino MD [address] [place] [address] PCP - General Family Medicine 01/14/21 01/17/21 Cam Butler MD [address] [place] [address] PCP - General Internal Medicine 01/18/21 Ciaran Johnston MD [address] [place] [address] Historical LMR Provider 06/30/17 09/17/21 Rain King MD [address] [facility], [address] [place] [address] [email or web address] Historical LMR Provider 06/30/17 2 Karolina Carlton MD [address] [place] [address] [email or web address] Historical LMR Provider 06/30/17 09/17/21 Silver Charles, GERARD [address] [place] [address] 2_[place] [address] [email or web address] Historical LMR Provider 06/30/17 09/17/21 Casey Amezquita CNP [address] [place] [address], [address] [place] [address] [email or web address] Historical LMR Provider 06/30/17 09/17/21 Carmen Kumar, GERARD [address] [place] [address] [place] [address] Historical LMR Provider 06/30/17 Jeffrey Celestin MD [address] [place] [address], [address] [place] [address] [email or web address] Historical LMR Provider 06/30/17 Mikal Lea MD [address] [facility] Floor 1 [place] [address] [email or web address] Historical LMR Provider 06/30/17 documented as of this encounter Additional Source Comments The information contained in this document represents components of the legal health record. It is not the complete legal health record.[facility]
--- OUTSIDE RECORDS SUMMARY | 2025-06-24 13:35 | XMS_ITS | Clinical Summary ---
Author Organization [facility] Address [address] [facility] [address] [place] [address] Phone Care Team Providers Care In Home Nanny Name Role Phone Jeffrey Celestin MD Unavailable [phone] Mikal Lea MD Unavailable Cam Butler MD Primary Care Provider [phone] Allergies Active Allergy Reactions Criticality Noted Date [...] Description 08/05/2025 4:15 PM EST Office Visit [facility] Medicine [address] [place] [address] [place] [address] Cam Butler MD [address] [facility] [place] [address] Health Maintenance Due Date Last Done Comments [...] EST) SODIUM 139 133 - 146 mmol/L [facility] CHLORIDE 101 96 - 108 mmol/L [facility] POTASSIUM 4.0 3.3 - 5.1 mmol/L [facility] CO2 28 21 - 35 mmol/L [facility] BUN 15 6 - 19 mg/dL [facility] CREATININE 0.80 0.5 - 1.5 mg/dL [facility] GLUCOSE 112(H) 70 - 99 mg/dL [facility] CALCIUM 10.3 8.4 - 10.3 mg/dL [facility] EGFR 113 >59 mL/min/1.7 3m2 [facility] Comment:Estimated glomerular filtration rate calculated using the CKD-EPI refit equation. ANION GAP 14 10 - 20 mmol/L [facility] Blood 09/23/2024 10:1 8 AM EST 09/23/2024 10:25 AM EST us Cam Butler MD LAB BLOOD ORDERABLES Final Result Performing Organization Address City/[facility]/ZIP Co de Phone Number [address] [address] * Lipid panel (06/21/2021 12:04 PM EDT) HDL 51 mg/dL [facility] Comment: Interpretation <40 mg/dL: Low HDL cholesterol (major risk factor for CHD) Greater than or equal to 60 mg/dL: High HDL cholesterol ( negative risk factor for CHD) HDL - cholesterol is affected by a number of factors, e.g. smoking, excerise, hormones, sex and age. CHOLESTEROL 189 0 - 240 mg/dL [facility] TRIGLYCERIDES 44 30 - 160 mg/dL [facility] LDL 129 50 - 129 mg/dL [facility] Comment: LDL levels in terms of risk for coronary heart disease: <100 mg/dL: Optimal 100-129 mg/dL: Near or above optimal 130-159 mg/dL: Borderline high 160-189 mg/dL: High >190 mg/dL: Very High CARDIAC RISK RATIO 3.7 3.4 - 5.0 C [facility] Blood 06/21/2021 12:0 4 PM EDT 06/21/2021 12:09 PM EDT us Isabela Izquierdo DO LAB BLOOD ORDERABLES Final Result Performing Organization Address City/[facility]/ZIP Co de Phone Number [address] [address] * Hepatitis C antibody, qualitative (07/02/2018 4:30 PM EDT) HCV Negative Negative [facility] Comment: This is a screening test and should be confirmed with molecular testing Blood 07/02/2018 4:30 PM EDT 07/02/2018 4:37 PM EDT Mikal Lea MD LAB BLOOD ORDERABLES Final Result Performing Organization Address [facility]/ZIP Co de Phone Number [address] [address] * Glucose (09/07/2017 4:24 PM EST) GLUCOSE 82 70 - 99 mg/dL [facility] Blood 09/07/2017 4:24 PM EST 09/07/2017 4:32 PM EST Mikal Lea MD LAB BLOOD ORDERABLES Final Result Performing Organization Address [facility] Co de Phone Number [address] [address] from Last 3 Months or Most Recently Relevant to Health Maintenance Insurance [facility] [employer] [place] [employer] [place] [facility] [place] [facility] Care Teams In Home Nanny Relationship Specialty Start Date End Date Cam Butler MD [address] [facility] [place] [address] PCP - General Internal Medicine 01/18/21 Jeffrey Celestin MD [address] [facility] [place] [address] [email or web address] Historical LMR Provider 06/30/17 Mikal Lea MD [address] [facility] Floor 1 [place] [address] [email or web address] Historical LMR Provider 06/30/17 Additional Source Comments The information contained in this document represents components of the legal health record. It is not the complete legal health record.[facility]
--- OUTSIDE RECORDS SUMMARY | 2025-06-24 13:35 | XMS_ITS | Encounter Summary ---
Author Organization [facility] Address [address] [facility] [address] [place] [address] Phone Care Team Providers Care Car Wash Attendant Name Role Phone Ciaran Johnston MD Unavailable [phone] Rain King MD Unavailable [phone] Karolina Carlton MD Unavailable [phone] Silver Charles INSURANCE SOLICITOR Unavailable Casey Amezquita LIGHTOUT EXAMINER Unavailable [phone] Carmen Kumar INSURANCE SOLICITOR Unavailable [phone] Jeffrey Celestin MD Unavailable [phone] Mikal Lea MD Unavailable [phone] Isabela Izquierdo DO Primary Care Provider Deborah Aquino MD Primary Care Provider Cam Butler MD Primary Care Provider Encounter Details Date Type Department Care Team (Late st Contact Info) Description 04/15/2019 Ancillary Orders [address] [place] [address] Kaitlynn Haro MD [address] [place] [address] Orthopedics & Sports Medicine, [facility]. [place], [place] [id number] Hand pain, left Social History Tobacco Use [...] 08/05/2025 4:15 PM EST Office Visit [facility] Medicine [address] [place] [address] Cam Butler MD [address] [facility] [place] [address] [email or web address] documented as of this encounter Results * [...] documented as of this encounter Care Teams Car Wash Attendant Relationship Specialty Start Date End Date Isabela Izquierdo DO [address] [place] [address] [email or web address] PCP - General 09/13/18 01/13/21 Deborah Aquino MD [address] [facility] [address] [place] [address] PCP - General Family Medicine 01/14/21 01/17/21 Cam Butler MD [address] [place] [address], [address] [place] [address] PCP - General Internal Medicine 01/18/21 Ciaran Johnston MD [address] [place] [address], [address] [place] [address] Historical LMR Provider 06/30/17 09/17/21 Rain King MD [address] [place] [address], [address] [place] [address] Historical LMR Provider 06/30/17 2 Karolina Carlton MD [address] [place] [address] [email or web address] Historical LMR Provider 06/30/17 09/17/21 Silver Charles NP [address] [place] [address] 2_[place] [address] [email or web address] Historical LMR Provider 06/30/17 09/17/21 Casey Amezquita, BRADLEY [address] [place] [address], [address] [place] [address] [email or web address] Historical LMR Provider 06/30/17 09/17/21 Carmen Kumar, INSURANCE SOLICITOR [address] [place] [address] [place] [address] Historical LMR Provider 06/30/17 Jeffrey Celestin MD [address] [place] [address], [address] [place] [address] [email or web address] Historical LMR Provider 06/30/17 Mikal Lea MD [address] [place] [address] Floor 1 [place] [address] [email or web address] Historical LMR Provider 06/30/17 documented as of this encounter Additional Source Comments The information contained in this document represents components of the legal health record. It is not the complete legal health record.[facility]
--- OUTSIDE RECORDS SUMMARY | 2025-06-24 13:35 | XMS_ITS | Encounter Summary ---
Author Organization [facility] Address [address] [facility] [address] [place] [address] Phone Care Team Providers Care Comp Field Case Manager Name Role Phone Ciaran Johnston MD Unavailable +[phone] Rain King MD Unavailable [phone] Karolina Carlton MD Unavailable [phone] Silver Charles SATELLITE INSTALLER Unavailable Casey Amezquita FLUE CLEANER Unavailable [phone] Carmen Kumar SATELLITE INSTALLER Unavailable [phone] Jeffrey Celestin MD Unavailable [phone] Mikal Lea MD Unavailable [phone] Isabela Izquierdo DO Primary Care Provider Deborah Aquino MD Primary Care Provider [phone] Cam Butler MD Primary Care Provider Encounter Details Date Type Department Care Team (Late st Contact Info) Description 04/15/2019 Ancillary Orders [facility] Orthopedics & Sports Medicine [address] [place] [address] Kaitlynn Haro MD [address] [place] [address] Orthopedics & Sports Medicine, [facility]. [place], [place] [id number] Social History Tobacco Use Types Packs/Day Years [...] Description 08/05/2025 4:15 PM EST Office Visit [facility] Family Medicine [address] [place] [address] Cam Butler MD [address] [place] [address], [address] [place] [address] [email or web address] documented as of this encounter Visit Diagnoses Not on filedocumented in this encounter Additional Health Concerns Infection Onset Date Last Indicated Resolved Time COVID-19 05/20/2021 05/20/2021 06/10/2021 1:22 AM EDT documented as of this encounter Care Teams Comp Field Case Manager Relationship Specialty Start Date End Date Isabela Izquierdo DO [address] [place] [address] [email or web address] PCP - General 09/13/18 01/13/21 Deborah Aquino MD [address] [place] [address] PCP - General Family Medicine 01/14/21 01/17/21 Cam Butler MD [address] [place] [address], [address] [place] [address] PCP - General Internal Medicine 01/18/21 Ciaran Johnston MD [address] [place] [address], [address] [place] [address] Historical LMR Provider 06/30/17 09/17/21 Rain King MD [address] [facility] [place] [address] Historical LMR Provider 06/30/17 2 Karolina aCrlton MD [address] [place] [address] Historical LMR Provider 06/30/17 09/17/21 Silver Charles, GERARD [address] [place] [address] 2_[place] [address] [email or web address] Historical LMR Provider 06/30/17 09/17/21 Casey Amezquita, BRADLEY [address] [place] [address], [address] [place] [address] [email or web address] Historical LMR Provider 06/30/17 09/17/21 Carmen Kumar, GERARD [address] [place] [address] [place] [address] Historical LMR Provider 06/30/17 Jeffrey Celestin MD [address] [place] [address], [address] [place] [address] [email or web address] Historical LMR Provider 06/30/17 Mikal Lea MD [address] [facility] Floor 1 [place] [address] ([email or web address] Historical LMR Provider 06/30/17 documented as of this encounter Additional Source Comments The information contained in this document represents components of the legal health record. It is not the complete legal health record.[facility]
== END 2025-06-24 11:02 | disposition home or self-care (01) ==
LOC: HO.HMGAL 11:02
PROVIDERS: PCP Internal Medicine; Visit Provider Registered Nurse Emergency
DX: J30.89 Other allergic rhinitis (principal)
CPT/HCPCS: 95117; 95165

== ENCOUNTER 2025-07-08 08:52 | Outpatient (AMB) | payer OTHER, SELFPAY ==
--- OUTSIDE RECORDS SUMMARY | 2025-07-08 09:44 | XMS_ITS | Clinical Summary ---
Author Organization [facility] Address [address] [facility] [address] [place] [address] Phone Care Team Providers Care Enterprise Applications Manager Name Role Phone Jeffrey Celestin MD Unavailable [phone] Mikal Lea MD Unavailable Cam Butler MD Primary Care Provider [phone] Allergies Active Allergy Reactions Criticality Noted Date [...] Description 08/05/2025 4:15 PM EST Office Visit [facility] Medicine [address] [place] [address] [place] [address] Cam Butler MD [address] [facility] [place] [address] Health Maintenance Due Date Last Done Comments [...] EST) SODIUM 139 133 - 146 mmol/L [facility] CHLORIDE 101 96 - 108 mmol/L [facility] POTASSIUM 4.0 3.3 - 5.1 mmol/L [facility] CO2 28 21 - 35 mmol/L [facility] BUN 15 6 - 19 mg/dL [facility] CREATININE 0.80 0.5 - 1.5 mg/dL [facility] GLUCOSE 112(H) 70 - 99 mg/dL [facility] CALCIUM 10.3 8.4 - 10.3 mg/dL [facility] EGFR 113 >59 mL/min/1.7 3m2 [facility] Comment:Estimated glomerular filtration rate calculated using the CKD-EPI refit equation. ANION GAP 14 10 - 20 mmol/L [facility] Blood 09/23/2024 10:1 8 AM EST 09/23/2024 10:25 AM EST us Cam Butler MD LAB BLOOD ORDERABLES Final Result Performing Organization Address City/[facility]/ZIP Co de Phone Number [address] [address] * Lipid panel (06/21/2021 12:04 PM EDT) HDL 51 mg/dL [facility] Comment: Interpretation <40 mg/dL: Low HDL cholesterol (major risk factor for CHD) Greater than or equal to 60 mg/dL: High HDL cholesterol ( negative risk factor for CHD) HDL - cholesterol is affected by a number of factors, e.g. smoking, excerise, hormones, sex and age. CHOLESTEROL 189 0 - 240 mg/dL [facility] TRIGLYCERIDES 44 30 - 160 mg/dL [facility] LDL 129 50 - 129 mg/dL [facility] Comment: LDL levels in terms of risk for coronary heart disease: <100 mg/dL: Optimal 100-129 mg/dL: Near or above optimal 130-159 mg/dL: Borderline high 160-189 mg/dL: High >190 mg/dL: Very High CARDIAC RISK RATIO 3.7 3.4 - 5.0 C [facility] Blood 06/21/2021 12:0 4 PM EDT 06/21/2021 12:09 PM EDT us Isabela Izquierdo DO LAB BLOOD ORDERABLES Final Result Performing Organization Address City/[facility]/ZIP Co de Phone Number [address] [address] * Hepatitis C antibody, qualitative (07/02/2018 4:30 PM EDT) HCV Negative Negative [facility] Comment: This is a screening test and should be confirmed with molecular testing Blood 07/02/2018 4:30 PM EDT 07/02/2018 4:37 PM EDT Mikal Lea MD LAB BLOOD ORDERABLES Final Result Performing Organization Address [facility]/ZIP Co de Phone Number [address] [address] * Glucose (09/07/2017 4:24 PM EST) GLUCOSE 82 70 - 99 mg/dL [facility] Blood 09/07/2017 4:24 PM EST 09/07/2017 4:32 PM EST Mikal Lea MD LAB BLOOD ORDERABLES Final Result Performing Organization Address [facility] Co de Phone Number [address] [address] from Last 3 Months or Most Recently Relevant to Health Maintenance Insurance [facility] [place] [facility] [facility] [place] [facility] [place] [facility] Care Teams Enterprise Applications Manager Relationship Specialty Start Date End Date Cam Butler MD [address] [facility] [place] [address] PCP - General Internal Medicine 01/18/21 Jeffrey Celestin MD [address] [facility] [place] [address] [email or web address] Historical LMR Provider 06/30/17 Mikal Lea MD [address] [facility] Floor 1 [place] [address] [email or web address] Historical LMR Provider 06/30/17 Additional Source Comments The information contained in this document represents components of the legal health record. It is not the complete legal health record.[facility]
--- OUTSIDE RECORDS SUMMARY | 2025-07-08 09:44 | XMS_ITS | Encounter Summary ---
Author Organization [facility] Address [address] [place] [address] Phone Care Team Providers Care Embroidery Operator Name Role Phone Ciaran Johnston MD Unavailable +[phone] Rain King MD Unavailable +[phone] Karolina Carlton MD Unavailable [phone] Silver Charles INFORMATICS PHARMACIST Unavailable Casey Amezquita AGRICULTURAL MECHANIC Unavailable [phone] Carmen Kumar INFORMATICS PHARMACIST Unavailable [phone] Jeffrey Celestin MD Unavailable [phone] Mikal Lea MD Unavailable [phone] Isabela Izquierdo DO Primary Care Provider Deborah Aquino MD Primary Care Provider [phone] Cam Butler MD Primary Care Provider Encounter Details Date Type Department Care Team (Late st Contact Info) Description 04/15/2019 Ancillary Orders [facility] Orthopedics & Sports Medicine [address] [place] [phone] Kaitlynn Haro MD [address] [place] [address] Orthopedics & Sports Medicine, [facility]. [place], [place] [id number] Social History Tobacco Use Types Packs/Day Years [...] Description 08/05/2025 4:15 PM EST Office Visit [facility] Family Medicine [address] [place] [address] Cam Butler MD [address] [place] [address], [address] [place] [address] [email or web address] documented as of this encounter Visit Diagnoses Not on filedocumented in this encounter Additional Health Concerns Infection Onset Date Last Indicated Resolved Time COVID-19 05/20/2021 05/20/2021 06/10/2021 1:22 AM EDT documented as of this encounter Care Teams Embroidery Operator Relationship Specialty Start Date End Date Isabela Izquierdo DO [address] [place] [address] [email or web address] PCP - General 09/13/18 01/13/21 Deborah Aquino MD [address] [place] [address] PCP - General Family Medicine 01/14/21 01/17/21 Cam Butler MD [address] [place] [address], [address] [place] [address] PCP - General Internal Medicine 01/18/21 Ciaran Johnston MD [address] [place] [address], [address] [place] [address] Historical LMR Provider 06/30/17 09/17/21 Rain King MD [address] [facility], [address] [place] [address] Historical LMR Provider 06/30/17 2 Karolina Carlton MD [address] [place] [address] [email or web address] Historical LMR Provider 06/30/17 09/17/21 Silver Charles, GERARD [address] [place] [address] 2_[place] [address] [email or web address] Historical LMR Provider 06/30/17 09/17/21 Casey Amezquita, BRADLEY [address] [place] [address], [address] [place] [address] [email or web address] Historical LMR Provider 06/30/17 09/17/21 Carmen Kumar, GERARD [address] [place] [address] [place] [address] Historical LMR Provider 06/30/17 Jeffrey Celestin MD [address] [place] [address], [address] [place] [address] [email or web address] Historical LMR Provider 06/30/17 Mikal Lea MD [address] [facility] Floor 1 [place] [address] (work) [email or web address] Historical LMR Provider 06/30/17 documented as of this encounter Additional Source Comments The information contained in this document represents components of the legal health record. It is not the complete legal health record.[facility]
--- OUTSIDE RECORDS SUMMARY | 2025-07-08 09:44 | XMS_ITS | Encounter Summary ---
Author Organization [facility] Address [address] [place] [address] Phone Care Team Providers Care Market Developer Name Role Phone Ciaran Johnston MD Unavailable +[phone] Rain King MD Unavailable +[phone] Karolina Carlton MD Unavailable [phone] Silver Charles RECEIVING CLERK Unavailable Casey Amezquita SUGAR COATING HAND Unavailable [phone] Carmen Kumar RECEIVING CLERK Unavailable [phone] Jeffrey Celestin MD Unavailable [phone] Mikal Lea MD Unavailable [phone] Isabela Izquierdo DO Primary Care Provider Deborah Aquino MD Primary Care Provider [phone] Cam Butler MD Primary Care Provider Encounter Details Date Type Department Care Team (Late st Contact Info) Description 04/15/2019 Ancillary Orders [address] [place] [phone] Kaitlynn Haro MD [address] [place] [address] Orthopedics & Sports Medicine, [facility]. [place], [place] [id number] Hand pain, left Social History Tobacco Use [...] Description 08/05/2025 4:15 PM EST Office Visit [facility] Medicine [address] [place] [address] Cam Butler MD [address] [facility], [address] [place] [address] [email or web address] documented as of this encounter Results * [...] documented as of this encounter Care Teams Market Developer Relationship Specialty Start Date End Date Isabela Izquierdo DO [address] [place] [address] [email or web address] PCP - General 09/13/18 01/13/21 Deborah Aquino MD [address] [facility] [address] [place] [address] PCP - General Family Medicine 01/14/21 01/17/21 Cam Butler MD [address] [place] [address], [address] [place] [address] PCP - General Internal Medicine 01/18/21 Ciaran Johnston MD [address] [place] [address], [address] [place] [address] Historical LMR Provider 06/30/17 09/17/21 Rain King MD [address] [place] [address], [address] [place] [address] Historical LMR Provider 06/30/17 2 Karolina Carlton MD [address] [place] [address] [email or web address] Historical LMR Provider 06/30/17 09/17/21 Silver Charles NP [address] [place] [address] 2_[place] [address] [email or web address] Historical LMR Provider 06/30/17 09/17/21 Casey Amezquita, BRADLEY [address] [place] [address], [address] [place] [address] [email or web address] Historical LMR Provider 06/30/17 09/17/21 Carmen Kumar, RECEIVING CLERK [address] [place] [address] [place] [address] Historical LMR Provider 06/30/17 Jeffrey Celestin MD [address] [place] [address], [address] [place] [address] [email or web address] Historical LMR Provider 06/30/17 Mikal Lea MD [address] [place] [address] Floor 1 [place] [address] [email or web address] Historical LMR Provider 06/30/17 documented as of this encounter Additional Source Comments The information contained in this document represents components of the legal health record. It is not the complete legal health record.[facility]
--- OUTSIDE RECORDS SUMMARY | 2025-07-08 09:44 | XMS_ITS | Encounter Summary ---
Author Organization [facility] Address [address] [place] [address] Phone Care Team Providers Care Channel Machine Operator Name Role Phone Ciaran Johnston MD Unavailable +11 Rain King MD Unavailable +[phone] Karolina Carlton MD Unavailable [phone] Silver Charles ELECTRONIC PAGE MAKEUP SYSTEM OPERATOR Unavailable Casey Amezquita CARPENTER HELPER MAINTENANCE Unavailable [phone] Carmen Kumar ELECTRONIC PAGE MAKEUP SYSTEM OPERATOR Unavailable [phone] Jeffrey Celestin MD Unavailable [phone] Mikal Lea MD Unavailable [phone] Isabela Izquierdo DO Primary Care Provider + [phone] Deborah Aquino MD Primary Care Provider Cam Butler MD Primary Care Provider + [phone] Encounter Details Date Type Department Care Team (Late st Contact Info) Description 04/15/2019 Procedure Pass [facility], [address] [address] Social History Tobacco Use Types Packs/Day Years [...] Description 08/05/2025 4:15 PM EST Office Visit [facility] [address] [place] [address] Cam Butler MD [address] [place] [address], [address] [place] [address] documented as of this encounter Visit Diagnoses Not on filedocumented in this encounter Additional Health Concerns Infection Onset Date Last Indicated Resolved Time COVID-19 05/20/2021 05/20/2021 06/10/2021 1:22 AM EDT documented as of this encounter Care Teams Channel Machine Operator Relationship Specialty Start Date End Date Isabela Izquierdo DO [address] [place] [address] [email or web address] PCP - General 09/13/18 01/13/21 Deborah Aquino MD [address] [place] [address] PCP - General Family Medicine 01/14/21 01/17/21 Cam Butler MD [address] [place] [address] PCP - General Internal Medicine 01/18/21 Ciaran Johnston MD [address] [place] [address] Historical LMR Provider 06/30/17 09/17/21 Rain King MD [address] [facility], [address] [place] [address] [email or web address] Historical LMR Provider 06/30/17 2 Karolina Carlton MD [address] [place] [address] [email or web address] Historical LMR Provider 06/30/17 09/17/21 Silver Charles, GERARD [address] [place] [address] 2[place] [address] [email or web address] Historical LMR Provider 06/30/17 09/17/21 Casey Amezquita CNP [address] [place] [address], [address] [place] [address] [email or web address] Historical LMR Provider 06/30/17 09/17/21 Carmen Kumar, GERARD [address] [place] [address] [place] [address] Historical LMR Provider 06/30/17 Jeffrey Celestin MD [address] [place] [address], [address] [place] [address] [email or web address] Historical LMR Provider 06/30/17 Mikal Lea MD [address] [facility] Floor 1 [place] [address] [email or web address] Historical LMR Provider 06/30/17 documented as of this encounter Additional Source Comments The information contained in this document represents components of the legal health record. It is not the complete legal health record.[facility]
== END 2025-07-08 08:53 | disposition home or self-care (01) ==
LOC: HO.HMGAL 08:52
PROVIDERS: PCP Internal Medicine; Visit Provider Registered Nurse Emergency
DX: J30.89 Other allergic rhinitis (principal)
CPT/HCPCS: 95117; 95165

== ENCOUNTER 2025-07-22 08:58 | Outpatient (AMB) | payer OTHER, SELFPAY | END 2025-07-22 08:59 | disposition home or self-care (01) | LOC: HO.HMGAL 08:59 | PROVIDERS: PCP Internal Medicine; Visit Provider Registered Nurse Emergency | DX: J30.89 Other allergic rhinitis (principal) | CPT/HCPCS: 95117; 95165 ==

== ENCOUNTER 2025-08-24 11:37 | Outpatient (AMB) | payer OTHER, SELFPAY | END 2025-08-24 11:37 | disposition home or self-care (01) | LOC: HO.HMGAL 11:37 | PROVIDERS: PCP Internal Medicine; Visit Provider Registered Nurse Emergency | DX: J30.89 Other allergic rhinitis (principal) | CPT/HCPCS: 95117; 95165 ==